=== PATIENT | male | born 1955 | race Caucasian/White ===

== ENCOUNTER 2022-05-19 14:00 | Emergency (ER) | payer OTHER, SELFPAY ==
--- NOTE | ~2022-05-19 | XR_ITS ---
EXAM: XR hand RT min 3V DATE: 05/19/2022 14:35 HISTORY: RT hand swelling, ulcer on RT 2nd finger. NKI. HX DIABETES . COMPARISON: None available. FINDINGS: Normal mineralization. No fracture or dislocation. No lytic or blastic lesion. Joint space s are scattered degenerative changes. No erosion or periosteal change. Soft tissue swelling over the second digit with a anterior lateral soft tissue defect. IMPRESSION: No acute osseous finding in the right hand. Reviewed, dictated and finalized at location [facility]
[2022-05-19 14:06] VITALS: BP 165/83; PULSE 102; RESP 12; TEMP 36.6; O2SAT 99
[2022-05-19 14:34] LABS: Basophils Absolute Auto 0.1 K/mm3 (0.0-0.1); Basophils Percent Auto 0.3 % (0.2-1.2); Eosinophils Absolute Auto 0.1 K/mm3 (0-0.3); Eosinophils Percent Auto 0.4 % (0-4.4); Hematocrit 36.8 % (42.0-52.0); Immature Granulocyte Absolute 0.13 K/mm3 (0.00-0.031); Immature Granulocyte Percent A 0.8 % (0-0.5); Lymphocytes Absolute Auto 1.87 K/mm3 (0.9-3.2); Lymphocytes Percent Auto 11.4 % (18.3-44.2); Mean Corpuscular HGB Conc 32.6 g/dl (32-36); Mean Corpuscular Hemoglobin 27.5 pg (26-34); Mean Corpuscular Volume 84.2 fl (80-100); Mean Platelet Volume 11.1 fl (7.4-10.4); Monocytes Absolute Auto 1.2 K/mm3 (0.1-0.6); Monocytes Percent Auto 7.4 % (2.6-8.5); Neutrophils Percent Auto 79.7 % (45.5-73.1); Platelet Count Result 234 k/mm3 (150-375); Red Blood Count 4.37 M/mm3 (4.6-6.20); Red Cell Distribution Width 12.6 % (11.5-14.5); White Blood Count 16.4 K/mm3 (4.5-10.0)
[2022-05-19 14:47] VITALS: BP 156/81; PULSE 87; RESP 18; O2SAT 100
[2022-05-19 15:03] LABS: Alanine Aminotransferase 17 U/L (6-50); Albumin Level 4.3 g/dL (3.5-5.1); Alkaline Phosphatase 154 U/L (38-126); Anion Gap 5 mmol/L (8-16); Aspartate Amino Transferase 16 U/L (17-59); Bilirubin,Total 0.6 mg/dL (0.2-1.3); Blood Urea Nitrogen 23 mg/dL (9-20); CRP 15.4 mg/dL (<1.0); Calcium 8.7 mg/dL (8.4-10.2); Carbon Dioxide 31 mmol/L (22-30); Chloride 90 mmol/L (98-107); Estimated CRCL calculation 108 ml/min; Estimated Glomerular Filt Rate > 60; Glucose 660 mg/dL (65-110); Sodium 126 mmol/L (137-145)
--- NOTE | 2022-05-19 15:06 | ED.GENADULT ---
HPI - General Adult General Chief complaint: Skin/Abscess/Foreign Body <Ricki Benjamin MD - Last Filed: 05/19/22 19:17> Stated complaint: infection to right index finger <Ricki Benjamin MD - Last Filed: 05/19/22 19:17> Time Seen by Provider: 05/19/22 14:43 <Ricki Benjamin MD - Last Filed: 05/19/22 19:17> History of Present Illness HPI narrative: 66-year-old male with history of type 2 diabetes with neuropathy presented emergency department for evaluation of a worsening wound to his left index finger. Patient states approximately 3 months ago he had a burn to his right index finger and states it had been improving but patient reports on Tuesday he had increasing swelling of the finger. On Tuesday patient had purulent discharge from the medial aspect of the left index finger. Patient denies any cough cold fevers chills or fatigue. <Ricki Benjamin MD - Last Filed: 05/19/22 19:17> Related Data Allergies/adverse reactions: Allergies Allergy/AdvReac Type Severity Reaction Status Date / Time Sulfa (Sulfonamide Allergy Unknown Verified 05/19/22 14:44 Antibiotics) <Ricki Benjamin MD - Last Filed: 05/19/22 19:17> Review of Systems Review of Systems: CONSTITUTIONAL: Denies fever, chills, or sweats. EYES: Denies visual changes, redness, or discharge. ENT: Denies rhinorrhea, congestion, sore throat, or otalgia. CARDIOVASCULAR: Denies chest pain, palpitations, or edema. RESPIRATORY: Denies cough or dyspnea. GASTROINTESTINAL: Denies abdominal pain, nausea, vomiting, or diarrhea. GENITOURINARY: Denies dysuria or hematuria. SKIN: See HPI MUSCULOSKELETAL: Denies back pain, joint pain, or myalgia. NEUROLOGIC: Denies headache, numbness, or weakness. <Ricki Benjamin MD - Last Filed: 05/19/22 19:17> Exam Narrative: APPEARANCE: Well appearing, no pain, no distress, well-nourished. HEAD: normocephalic, atraumatic. EYES: PERRLA/EOMI, conjunctivae clear. NOSE: Normal no drainage NECK: Supple. No adenopathy, no masses. RESPIRATORY: Airway patent, respirations nonlabored. Clear to auscultation bilaterally, no rales, rhonchi, wheezing. CARDIOVASCULAR: Regular rate and rhythm without murmurs rubs or gallops. ABDOMINAL: Soft, nontender, nondistended, normal bowel sounds MUSCULOSKELETAL: Erythema and swelling of the right index finger with some extension to the dorsal and palmar surfaces of the right hand. Skin breakdown on the medial aspect of the right index finger. NEURO: Alert. Cranial nerves II through XII intact. Grossly intact SKIN: Warm, dry. Normal Color \ <Ricki Benjamin MD - Last Filed: 05/19/22 19:17> Course Course Emergency Course: Patient's hyperglycemia was treated with 1 L normal saline and 7 of insulin. Patient's blood sugar did improve with treatment. Patient does not have an anion gap and I am not concerned for DKA at this point. Case was discussed with Dr. Freitas but he states this was beyond his scope of practice. He would recommend talking to our orthopedic surgeons. I discussed the case with Dr. Chadwick and he also felt this was beyond the scope of his practice. Patient has never had follow-up with [facility] I am pending placement at [facility]. While waiting for [facility] to return my call [facility] was not excepting patients, [facility] placed the patient on a wait list, and [facility] placed the patient on a wait list. <Ricki Benjamin MD - Last Filed: 05/19/22 19:17> Reevaluation(s) Reevaluation #1: At time of signout to Dr. Johnson return call from [facility] is pending. <Ricki Benjamin MD - Last Filed: 05/19/22 19:17> Reevaluation #2: 21:46 - Discussed patient with [facility] Hand surgery resident, Dr. Dean who accepts transfer. ED physician, Dr. Lee excepted the patient for transfer without conversation. Will transfer to [facility]. The patient is agreeable to the plan. <Ancelmo Johnson MD - Last Filed: 05/20/22 02:33> Vital Signs Vital signs:
[2022-05-19] MEDS: SODIUM CHLORIDE 0.9% IV 1,000 ML 999 ML IV CONT (15:27)
[2022-05-19 16:12] LABS: Influenza A QL RT-PCR Negative (Negative); Influenza B QL RT-PCR Negative (Negative); SARS-CoV-2 RNA PCR Negative
[2022-05-19] MEDS: INSULIN HUMAN REGULAR (*BKC) 100 UNITS/ML 7 UNITS IV PUSH (17:00)
[2022-05-19 17:07] VITALS: BP 136/58; PULSE 87; RESP 18; TEMP 37.8; O2SAT 97
[2022-05-19 17:56] LABS: Glucose Point of Care 344 mg/dl (65-105)
[2022-05-19 19:15] VITALS: BP 106/85; PULSE 77; RESP 18; TEMP 37.1; O2SAT 99
[2022-05-19] MEDS: PANTOPRAZOLE SODIUM IV 40 MG VIAL IV PUSH (19:31)
[2022-05-19 22:16] VITALS: BP 132/76; PULSE 87; RESP 18; O2SAT 98
== END 2022-05-19 22:18 | disposition short-term general hospital (02) ==
PROVIDERS: Emergency Medicine; Emergency Provider Preventive Medicine Aerospace Medicine; PCP Family Medicine
DX: L03.011 Cellulitis of right finger (principal); M65.9 Synovitis and tenosynovitis, unspecified; Z20.822 Contact with and (suspected) exposure to COVID-19; E11.40 Type 2 diabetes mellitus with diabetic neuropathy, unspecified; Z79.4 Long term (current) use of insulin
CPT/HCPCS: 36415; 73130; 80053; 82948; 85025; 86140; 87040; 87070; 87147; 87181; 87186; 87205; 87636; 96365; 96366; 96367; 96375; 99285; C9113; J0131; J1815; J2543; J3370; J7030